=== PATIENT | female | born 1950 | race Caucasian/White ===

== ENCOUNTER 2018-03-27 10:41 | Outpatient (CLI) | payer OTHER ==
--- NOTE | 2018-03-27 12:45 | RAD ---
LEFT FOOT THREE VIEWS: HISTORY: Heel pain. COMPARISON: None. FINDINGS: Large dorsal and plantar calcaneal spurs. No acute fracture or malalignment. Mild degenerative dise ase of the great toe metatarsophalangeal joint. Previously nondisplaced of the medial margin of the base of the fifth toe, proximal phalanx. Moderat e adjacent soft tissue swelling. Lisfranc interval is maintained. IMPRESSION: Concern for a nondisplaced fracture at the medial margin of the base of the proximal phalanx of the s mall toe. POS: DEE
== END 2018-03-27 10:42 | disposition home or self-care (01) ==
LOC: MADRAD 10:41
PROVIDERS: ATTEND Family Medicine
DX: M79.672 Pain in left foot (principal)